=== PATIENT | female | born 1995 | race Caucasian/White ===

== ENCOUNTER 2016-11-16 11:26 | Emergency (ER) | payer OTHER ==
[2016-11-16] MEDS ORDERED: HYDROCODONE/APAP 5/325 TAB ONE (11:54)
[2016-11-16] MEDS ORDERED: IBUPROFEN 600 MG TAB PO ONE ×2 (11:55→12:30)
[2016-11-16] MEDS ORDERED: HYDROCODONE/APAP 5/325 TAB PO ONE (12:30)
--- NOTE | 2016-11-16 12:41 | EDPHY ---
H & P Smoking Status: Never smoked Time Seen by Provider: 11/16/16 11:54 HPI/ROS: CHIEF COMPLAINT: Left ankle injury HISTORY OF PRESENT ILLNESS: 21-year-old female presents to the emergency department with injury to her left ankle. The patient was walking her dog when she tripped injuring her ankle. She did not hit her head or lose consciousness. She denies any other trauma or injury. She is unable to bear weight. ROS: Denies numbness or tingling in her toes, pain in her left knee or hip. ( ThorSonia Forrester) Past Medical/Surgical History: Negative (Sonia Mcrae) Social History: Recent [employer] graduate from [place] (Sonia Mcrae) Physical Exam: Examination of the left ankle reveals obvious swelling to the anterior lateral aspect of her left ankle. She is diffusely tender to palpate along both the lateral and medial malleolus. She has limited dorsi and plantar flexion secondary to pain. She has normal sensation to light touch with normal 2 point discrimination. Strong dorsalis pedis pulse on the dorsal aspect of her left foot. Her left calf is nontender. She has normal sensation to light touch with normal 2 point discrimination. No evidence of open fracture. She has superficial abrasions noted to the dorsal lateral aspect of her right 5th toe. She also has very superficial abrasion to the posterior left elbow. She has full range of motion of the upper extremities. (Selma Mcraenell Forrester) Constitutional: Initial Vital Signs Temperature (C) 36.7 C 11/16/16 11:30 Heart Rate 68 11/16/16 11:30 Respiratory Rate 20 11/16/16 11:30 Blood Pressure 145/86 H 11/16/16 11:30 O2 Sat (%) 98 11/16/16 11:30 O2 Delivery Mode Room Air Allergies/Adverse Reactions: No Known Allergies Allergy (Verified 11/16/16 11:32) Home Medications: Medication Instructions Recorded Levonorgestrel [Mirena] 1 each IY 11/16/16 oxyCODONE/APAP 5/325 [Percocet 1 - 2 tab PO Q4-6PRN PRN #15 tab 11/16/16 5/325] MDM/Departure - MDM Imaging: I viewed and interpreted images myself - MDM Procedures: Patient was placed in Ortho Glass posterior and sugar-tong splint. This was examined post application in good placement with normal ROVING [employer]RIER. She was given crutches (Sonia Mcrae) Medications Given: Discontinued Medications Hydrocodone Bitart/Acetaminophen (Boon 5/325) 1 tab PO EDNOW ONE Stop: 11/16/16 12:31 Last Admin: 11/16/16 13:18 Dose: 1 tab Ibuprofen (Motrin) 600 mg PO EDNOW ONE Stop: 11/16/16 12:31 Last Admin: 11/16/16 13:18 Dose: 600 mg ED Course/Re-evaluation: 21-year-old female presents to the emergency department with left ankle injury. X-rays reveal distal fibular and posterior tibial fracture. 3 way posterior and sugar-tong splint applied. Patient was given crutches and strict instructions of nonweightbearing. She will follow up with orthopedic surgeon in [place] when she returns home tomorrow. Patient was warned regarding risks of compartment syndrome as well as DVT. She was encouraged to elevate her legs as much as possible apply ice to help relieve swelling. She will return if she develops worsening pain, increasing swelling, or if she feels worse in any way. (Sonia Mcrae) I did not see this patient while she was in the emergency department. However her care was discussed with the PA while the patient was in the department. I agree with treatment plan and management (Kevin Cintron) - Depart Disposition: Home, Routine, Self-Care Clinical Impression: Closed left ankle fracture Condition: Good Instructions: Ankle Fracture (ED) Additional Instructions: Keep splint on and keep it dry. Ice. Elevate your leg as much as possible to help relieve swelling. Nonweightbearing, use crutches. Follow up with orthopedic surgeon Monday or Monday to recheck. Return to the emergency department sooner if he developed increasing pain, increasing swelling, numbness or tingling in her toes, or if you feel worse in any way. Ibuprofen 600 mg every 8 hours as needed for pain. Percocet for severe pain as directed to help you sleep. Prescriptions: oxyCODONE/APAP 5/325 [Percocet 5/325] 1 - 2 tab PO Q4-6PRN PRN #15 tab PRN Reason: For Moderate To Severe Pain Referrals: Ld Velez MD [Medical Doctor] - 2-3 days, call for appt. (Orthopedic surgeon on-call)
[2016-11-16 13:18] VITALS: BP 120/80; PULSE 84; RESP 14; TEMP 98.4; O2SAT 94
== END 2016-11-16 13:16 | disposition home or self-care (01) ==
DX: S82.832A Other fracture of upper and lower end of left fibula, initial encounter for closed fracture (principal); S82.52XA Displaced fracture of medial malleolus of left tibia, initial encounter for closed fracture; W01.0XXA Fall on same level from slipping, tripping and stumbling without subsequent striking against object, initial encounter; Y99.8 Other external cause status; Y93.K1 Activity, walking an animal